=== PATIENT | male | born 2000 | race Caucasian/White ===

== ENCOUNTER 2020-02-08 18:00 | Emergency (ER) | payer OTHER ==
--- NOTE | 2020-02-08 18:24 | ED ---
Bite Injury/Animal - HPI Summary HPI Summary: his pt is a 19 Y/O M presenting to [facility] with a CC of a tick bite that he noticed yesterday. He denies any rash but states that there is redness surrounding the area. He is unsure when the bite occurred. Pt denies any fever, chills, erythema of eyes, sore throat, CP, SOB, cough, abdominal pain, N/V, dysuria, hematuria, myalgia, edema, rash, or dizziness. He has no aggravating or alleviating factors. He has no pertinent PMHx. He states a SHx of smoking marijuana and drinking alcohol. - History of Current Complaint Chief Complaint: EDGeneral Stated Complaint: DEER TICK PER PT Time Seen by Provider: 02/08/20 18:05 Hx Obtained From: Patient Onset of Injury: Happened days ago - 1 Type of Bite: Wild Animal - tick Has Animal Been Immunized?: No Severity Currently: None Pain Intensity: 0 Pain Scale Used: 0-10 Numeric Aggravating Factor(s): Nothing Alleviating Factor(s): Nothing Associated Signs And Symptoms: Positive: Negative - fever, chills, erythema of eyes, sore throat, CP, SOB, cough, abdominal pain, N/V, dysuria, hematuria, myalgia, edema, rash, or dizziness, Erythema. Negative: Fever Animal Available for Observation: No Animal Control Notified: No - Allergies/Home Medications Allergies/Adverse Reactions: Allergies Allergy/AdvReac Type Severity Reaction Status Date / Time No Known Allergies Allergy Verified 02/08/20 18:05 PMH/Surg Hx/FS Hx/Imm Hx Previously Healthy: Yes Endocrine/Hematology History: Denies: Hx Diabetes Cardiovascular History: Denies: Hx Hypertension - Cancer History Hx Chemotherapy: No Hx Radiation Therapy: No - Surgical History Surgical History: Yes Surgery Procedure, Year, and Place: L thumb - Immunization History Immunizations Up to Date: Yes Infectious Disease History: No Infectious Disease History: Denies: Traveled Outside the [place] in Last 30 Days - Family History Known Family History: Negative: Hypertension - Social History Occupation: Student - [employer] Lives: Dormitory/Roommates Alcohol Use: Occasionally Hx Substance Use: Yes Substance Use Type: Reports: Marijuana Hx Tobacco Use: No Smoking Status (MU): Never Smoked Tobacco Review of Systems Negative: Fever, Chills Negative: Erythema Negative: Sore Throat Negative: Chest Pain Negative: Shortness Of Breath, Cough Negative: Abdominal Pain, Vomiting, Nausea Negative: dysuria, hematuria Negative: Myalgia, Edema Skin: Other - erythema around bite Negative: Rash Negative: Headache All Other Systems Reviewed And Are Negative: Yes Physical Exam - Summary Physical Exam Summary: General: Well appearing, no distress Cardiovascular: Skin is well perfused Pulmonary: No respiratory distress, no tachypnea Abdomen: Non-distended Skin: Warm, pink, dry Psych: Normal affect Neuro: A&Ox3 Back: no CVA tenderness. Triage Information Reviewed: Yes Vital Signs On Initial Exam: Initial Vitals Temp Pulse Resp BP Pulse Ox 98.6 F 66 14 131/77 99 02/08/20 18:01 02/08/20 18:01 02/08/20 18:01 02/08/20 18:01 02/08/20 18:01 Vital Signs Reviewed: Yes Procedures - Sedation Patient Received Moderate/Deep Sedation with Procedure: No Diagnostics - Vital Signs Vital Signs Temp Pulse Resp BP Pulse Ox 02/08/20 18:01 98.6 F 66 14 131/77 99 - Laboratory Lab Statement: Any lab studies that have been ordered have been reviewed, and results considered in the medical decision making process. Bite Injury Course/Dx - Course Course Of Treatment: Patient is here with a tick head stuck in his armpit. Patient removed the body. Patient states the tick was burrowed for more than 24 hours. Patient's had no sign of infection surrounding the tick or any rash associated with the tick bite. I was able to remove most of the tick however, there was a small piece I could not remove after multiple attempts. Patient was given a prophylactic dose of doxycycline. - Diagnoses Provider Diagnosis: Tick bite Discharge ED - Sign-Out/Discharge Documenting (check all that apply): Patient Departure - discharge - Discharge Plan Condition: Good Disposition: HOME Patient Education Materials: Lyme Disease (ED), Tick Bite (ED) Referrals: [facility] @ [Outside] - 2 Days Additional Instructions: PLEASE FOLLOW UP WITH THE [facility] IN 1-3 DAYS AND RETURN TO THE EMERGENCY DEPARTMENT FOR ANY NEW OR WORSENING SYMPTOMS. - Billing Disposition and Condition Condition: GOOD Disposition: Home - Attestation Statements Document Initiated by Scribe: Yes Documenting Scribe: Derrell Adams Provider For Whom Scribe is Documenting (Include Credential): Pete Oleary MD Scribe Attestation: IDerrell, scribed for Pete Oleary MD on 02/08/20 at 1907. Scribe Documentation Reviewed: Yes Provider Attestation: The documentation as recorded by the scribeDerrell accurately reflects the service I personally performed and the decisions made by me, Pete Oleary MD Status of Scribe Document: Viewed
[2020-02-08] MEDS ORDERED: DOXYcycline CAP(*) 100 MG PO ONE (18:32)
[2020-02-08 18:46] VITALS: BP 117/58
== END 2020-02-08 18:45 | disposition home or self-care (01) ==
LOC: ED 18:00
DX: S40.869A Insect bite (nonvenomous) of unspecified upper arm, initial encounter (principal); W57.XXXA Bitten or stung by nonvenomous insect and other nonvenomous arthropods, initial encounter; Y92.9 Unspecified place or not applicable
CPT/HCPCS: 99282; A9270-GY